=== PATIENT | male | born 1965 | race Caucasian/White ===

== ENCOUNTER → 2018-02-23 | Outpatient (CLI) | payer OTHER | END | disposition home or self-care (01) | LOC: CVU 06:41 | PROVIDERS: ATTEND Family Medicine | DX: E11.9 Type 2 diabetes mellitus without complications (principal); M79.604 Pain in right leg; F17.200 Nicotine dependence, unspecified, uncomplicated | CPT/HCPCS: 93922 ==

== ENCOUNTER → 2019-01-08 | Outpatient (CLI) | payer OTHER ==
[~2019-01-08] MED LIST: ALBU18HF INH; ALPR0.25 PO; BUSP10TA PO; CETI10CA PO; FLUO40CA9 PO; FLUT9.9S NS; GABA100C PO; METF1000 PO; PROP10TA16 PO; TRAZ150T62 PO
[2019-01-08 16:11] LABS: ALBUMIN 3.9 g/dL (3.4-5.0); ANION GAP 5 mmol/L (5-15); CALCIUM 8.9 mg/dL (8.5-10.1); CHLORIDE 103 mmol/L (98-107)
[2019-01-08 16:15] LABS: ALANINE AMINOTRANSFERASE 16 U/L (12-78); ALKALINE PHOSPHATASE 92 U/L (45-117); BILIRUBIN,TOTAL 0.4 mg/dL (0.2-1.0); CREATININE 0.96 mg/dL (0.7-1.3); TOTAL PROTEIN 6.6 g/dL (6.4-8.2)
== END | disposition home or self-care (01) ==
LOC: STAR 15:21
PROVIDERS: ATTEND Otolaryngology
DX: Z01.818 Encounter for other preprocedural examination (principal); D10.5 Benign neoplasm of other parts of oropharynx; I45.10 Unspecified right bundle-branch block
CPT/HCPCS: 36415; 80053; 93005

== ENCOUNTER 2019-01-12 05:26 | Day surgery (SDC) | payer OTHER ==
[~2019-01-12] VITALS: Ht 170.2 cm; Wt 66.4 kg
[2019-01-12] MEDS ORDERED: LACTATED RINGERS 1,000 ML IV SCH (06:14)
[2019-01-12 06:19] VITALS: BP 114/72
[2019-01-12] MEDS ORDERED: OXYMETAZOLINE NASAL SPRAY 0.05%, 15ML ONE (06:57)
[2019-01-12] MEDS ORDERED: MIDAZOLAM 1 MG/ML, 2ML ONE (07:27)
[2019-01-12] MEDS ORDERED: FENTANYL PF 100 MCG/2ML ONE ×2 (07:27→07:56)
[2019-01-12] MEDS ORDERED: HYDROmorphone 2 MG/ML, 1ML IVPush PRN (07:30)
[2019-01-12] MEDS ORDERED: METOPROLOL 1 MG/ML, 5ML IV PRN (07:30)
[2019-01-12] MEDS ORDERED: MEPERIDINE/PF 25MG/0.5ML IVPush PRN (07:30)
[2019-01-12] MEDS ORDERED: DIPHENHYDRAMINE 50 MG/ML, 1ML IVPush PRN (07:30)
[2019-01-12] MEDS ORDERED: ALBUTEROL/IPRATROPIUM 2.5MG/0.5MG, 3 ML NPPB PRN (07:30)
[2019-01-12] MEDS ORDERED: LABETALOL 5MG/ML, 20ML IV PRN (07:30)
[2019-01-12] MEDS ORDERED: PROMETHAZINE 25 MG/ML, 1ML IV PRN (07:30)
[2019-01-12] MEDS ORDERED: OXYcodone 5 MG/5 ML ORAL.SOL UDC PO PRN (07:30)
[2019-01-12] MEDS ORDERED: HALOPERIDOL 5 MG/ML IV PRN (07:30)
[2019-01-12] MEDS ORDERED: ACETAMINOPHEN 500 MG TABLET PO ONE (07:30)
[2019-01-12] MEDS ORDERED: hydrALAzine 20 MG/ML, 1ML IV PRN (07:30)
[2019-01-12] MEDS ORDERED: ALBUTEROL SULFATE 2.5 MG/3 ML NPPB PRN (07:30)
[2019-01-12] MEDS ORDERED: FENTANYL PF 100 MCG/2ML IV PRN (07:30)
[2019-01-12] MEDS ORDERED: PROCHLORPERAZINE 5 MG/ML, 2ML IV PRN (07:30)
[2019-01-12] MEDS ORDERED: ESMOLOL 100 MG/10 ML ONE (07:37)
[2019-01-12] MEDS ORDERED: LIDOCAINE 1%, 20ML INFIL ONE (08:00)
[2019-01-12] MEDS ORDERED: DEXAMETHASONE 4 MG/ML, 1ML ONE (08:03)
[2019-01-12] MEDS ORDERED: GLYCOPYRROLATE 0.2MG/1ML, 5ML ONE (08:03)
[2019-01-12] MEDS ORDERED: ROCURONIUM 10MG/ML,5ML ONE (08:03)
[2019-01-12] MEDS ORDERED: PROPOFOL 10 MG/ML, 20ML ONE (08:03)
[2019-01-12] MEDS ORDERED: ONDANSETRON 2MG/ML, 2ML ONE (08:03)
[2019-01-12] MEDS ORDERED: SUCCINYLCHOLINE 20 MG/ML, 10ML ONE (08:03)
[2019-01-12] MEDS ORDERED: NEOSTIGMINE 1 MG/ML, 10ML ONE (08:03)
[2019-01-12] MEDS ORDERED: CEFAZOLIN 1,000 MG ONE (08:03)
[2019-01-12] MEDS ORDERED: LIDOCAINE 1%, 20ML ONE (08:23)
[2019-01-12] MEDS ORDERED: EPINEPHRINE 1 MG/ML, 1ML ONE (08:23)
== END 2019-01-12 10:05 | disposition home or self-care (01) ==
LOC: OUT 05:26
PROVIDERS: ATTEND Otolaryngology
DX: D10.5 Benign neoplasm of other parts of oropharynx (principal); E11.9 Type 2 diabetes mellitus without complications; G47.33 Obstructive sleep apnea (adult) (pediatric); J45.909 Unspecified asthma, uncomplicated; K21.9 Gastro-esophageal reflux disease without esophagitis; F41.8 Other specified anxiety disorders; Z72.89 Other problems related to lifestyle; Z79.84 Long term (current) use of oral hypoglycemic drugs; Z79.899 Other long term (current) drug therapy; Z87.891 Personal history of nicotine dependence; Z80.9 Family history of malignant neoplasm, unspecified
CPT/HCPCS: 42808; 82962; 88305; J0171; J0330; J0690; J1100; J2250; J2405; J2704; J2710; J3010; J7120

== ENCOUNTER 2019-12-20 11:30 | Outpatient (CLI) | payer OTHER | END 2019-12-20 23:59 | disposition home or self-care (01) | LOC: RAD 11:30 | PROVIDERS: ATTEND Family Medicine | DX: M25.562 Pain in left knee (principal) ==

== ENCOUNTER → 2021-01-29 | Outpatient (CLI) | payer OTHER | END | disposition home or self-care (01) | LOC: RAD 13:49 | PROVIDERS: ATTEND Family Medicine | DX: M51.37 Other intervertebral disc degeneration, lumbosacral region (principal); M25.561 Pain in right knee; M25.562 Pain in left knee | CPT/HCPCS: 72110 ==